=== PATIENT | male | born 1995 | race Caucasian/White ===

== ENCOUNTER 2021-06-30 08:50 | Observation (INO) | payer OTHER ==
[~2021-06-30] VITALS: Ht 172.7 cm; Wt 70.5 kg
[2021-06-30] MEDS ORDERED: PROZAC40 MG PO (09:03)
[2021-06-30] MEDS ORDERED: KLONOPIN 0.5MG0.5 MG PO (09:04)
[2021-06-30 09:31] LABS: BASO # 0.1 K/mm3 (0.0-0.2); BASO % 0.7 % (0.0-2.0); EOS # 0.9 K/mm3 (0.0-0.7); EOS % 10.2 % (0.0-4.0); GRAN # 4.3 K/mm3 (1.4-6.5); GRAN % 48.6 % (42.2-75.2); HEMATOCRIT 50.8 % (42.0-52.0); HEMOGLOBIN 17.2 g/dl (13.5-18.0); LYMPH # 2.9 K/mm3 (1.2-3.4); LYMPH % 32.8 % (20.0-51.0); MEAN CELL VOLUME 85 fl (80.0-100.0); MEAN CORPUSCULAR HEMOGLOBIN 29 pg (27-31); MEAN CORPUSCULAR HGB CONC 34 g/dl (33.0-37.0); MEAN PLATELET VOLUME 9.6 fl (7.4-10.4); MONO # 0.7 K/mm3 (0.1-0.6); MONO % 7.5 % (1.7-9.3); PLATELET COUNT 385 K/mm3 (130-400); RED BLOOD COUNT 5.97 M/mm3 (4.20-5.60); REDCELL DISTRIBUTION WIDTH-CV 12.3 % (11.5-14.5)
[2021-06-30 09:46] LABS: CALCIUM 9.6 mg/dL (8.4-10.2); CREATININE, serum 0.84 mg/dL (0.72-1.25); POTASSIUM 4.1 mmol/L (3.5-4.5)
[2021-06-30 16:00] VITALS: BP 122/73; PULSE 117; TEMP 97.6
--- NOTE | 2021-06-30 16:04 | NUR ---
pt to room 316 from ED. Report recieved from ED nurse to Ruth.
--- NOTE | 2021-06-30 17:09 | NUR ---
PT ARRIVED TO UNIT AROUND 1530. PATIENT ALERT AND ORIENTED X4. IV TO LEFT FOREARM. ON REGUALR DIET. 1L NASAL CANULLA.
[2021-06-30 20:18] VITALS: BP 131/70; PULSE 127; TEMP 97.4
--- NOTE | 2021-06-30 22:05 | NUR ---
AAO NO S/S OF SOA AT THIS TIME PATIENT REMAINS ON 02@1L VIA ME, CONTINUES WORKING WITH RESPIRATORY THERAPIST. PATIENT IS SINUS TACHYCARDIC. NOTIFIED DELANO PADILLA IN REGARDS TO TACHYCARDIA AND PATIENT DOES HAVE HOME MEDICATION FOR PROZAC AND CLONAZEPAM FOR ANXIETY STATED WOULD REVIEW CHART. WILL CONTINUE TO MONITOR FOR ANY CHANGES.
[2021-06-30 22:07] VITALS: PULSE 111
[2021-06-30 23:55] VITALS: BP 143/75; PULSE 114; TEMP 97.6
[2021-07-01 04:47] VITALS: BP 116/88; PULSE 94; TEMP 98.8
--- NOTE | 2021-07-01 05:39 | NUR ---
PATIENT ON 1L OF OXYGEN VIA NC THROUGHOUT THE NIGHT NO C/O SOA OR DISTRESS NOTED. EDUCATED PATIENT ON DEEP BREATHING EXERCIS. FAMILY MEMBER AT BEDSIDE WILL CONTINUE TO MONITOR.
--- NOTE | 2021-07-01 06:30 | NUR ---
THE PATIENT IS AWAKE AND EXERCISING IN THE ROOM. TELEMETRY CALLED TO NOTIFY US OF SINUS TACHYCARDIA. THE PATIENT WAS IN THE 140'S. IT WAS OBSERVED THAT THE PATIENT WAS DOING JUMPING JACKS AND STATES HE'S READY TO GO. NO OTHER CONCERNS AT THIS TIME.
[2021-07-01 07:15] VITALS: BP 133/84; PULSE 101; TEMP 97.9
[2021-07-01] MEDS ORDERED: PROAIR HFA0.09 MG/AC IH (09:09)
[2021-07-01] MEDS ORDERED: PREDNISONE20 MG PO (09:13)
--- NOTE | 2021-07-01 09:18 | NUR ---
Optical Glass Inspector attended clinical rounds with the team and patient is ready for discharge today. SW met with patient and patient's girlfriend, Susan. Patient lives in [place] with Susan and sees a primary care physician on [address]. Patient obtains his medications from either . [facility] or [facility]. Patient does not use any DME and is independent with [facility]. Patient does not have DPOA-HC and his legal next of kin are his parents, John and Jane Burden who live in [place]. Patient plans to return home at time of discharge. Discharge Plan: Home
--- NOTE | 2021-07-01 10:01 | NUR ---
Patient back in bed from bathroom, patient stated that he did not want to take his prozac this morning. Instead he would like to take it at night when he is at home.
== END 2021-07-01 10:00 | disposition home or self-care (01) ==
LOC: COL.ER 08:50 → MEDICAL 12:54
PROVIDERS: Emergency Medicine
DX: J96.01 Acute respiratory failure with hypoxia (principal); J45.901 Unspecified asthma with (acute) exacerbation; F41.9 Anxiety disorder, unspecified; F17.290 Nicotine dependence, other tobacco product, uncomplicated; Z79.899 Other long term (current) drug therapy; Z20.822 Contact with and (suspected) exposure to COVID-19
CPT/HCPCS: G0378; J2920; J7120; J8540